=== PATIENT | female | born 1975 | race Caucasian/White ===

== ENCOUNTER 2016-06-15 09:10 | Emergency (ER) | payer OTHER ==
[~2016-06-15] VITALS: Ht 154.9 cm; Wt 85.0 kg
[2016-06-15 09:21] VITALS: PULSE 82; TEMP 36.5; O2SAT 96; Ht 154.9 cm; Wt 85.0 kg
--- NOTE | 2016-06-15 09:50 | EMERGENCY ROOM VISIT NOTE ---
History Report prepared by Dez: Miller Acuna Under the Supervision of: Dr. Stef Kauffman M.D. First contact with patient: 09:42 Chief Complaint: FALL Stated Complaint: FELL ON ICE, HIT HEAD/NECK,UPPER BACK, NAUSEA History of Present Illness The patient is a 41 year old female who presents to the Emergency Room with complaints of constant head pain secondary to a fall that occurred at 0800 this morning. Per the patient, she fell backwards on ice this morning while getting her daughter ready for school. The patient hit her upper back and neck during this fall. She states that the pain she is experiencing today is primarily in the front of her head, specifically behind her eyes. She rates her discomfort a 4/10 in severity. Additional symptoms include nausea, visual changes, tingling in the back, and a general sense of "feeling weird." She denies loss of consciousness, back pain, auditory changes, abdominal pain, and any additional associated symptoms. Source of History: patient Onset: 0800 this morning Position: head Symptom Intensity: 4/10 Timing: constant Associated Symptoms: + nausea, No LOC, No abdominal pain, No back pain Review of Systems All systems have been listed, reviewed, and are negative other than those previously mentioned. Please see Additional Medical History Sheet. Past Medical & Surgical Medical Problems: (1) Asthma (2) Crohn's disease (3) PVC (premature ventricular contraction) Surgical Problems: (1) H/O abdominoplasty (2) H/O bilateral breast reduction surgery (3) H/O section Family History Cancer Diabetes mellitus FH: HTN (hypertension) FH: kidney disease FH: seizures Heart disease Lung disease Social History Smoking Status: Never Smoker Alcohol Use: occasionally Marital Status: Housing Status: lives with family Occupation Status: employed Current/Historical Medications Scheduled Adalimumab (Humira Pen), 1 DOSE SC Q2W Gabapentin (Gabapentin), 1 CAP PO QAM Multiple Vitamin (Multivitamin), 1 TAB PO DAILY Venlafaxine Hcl (Venlafaxine Extended Rel), 2 TABS PO DAILY Scheduled PRN Ondasetron Odt (Zofran Odt), 4 MG SL Q4 PRN for nausea Allergies Coded Allergies: No Known Allergies (Unverified , 06/15/16) Physical Exam Vital Signs Date Time Temp Pulse Resp B/P Pulse Ox O2 Delivery O2 Flow Rate FiO2 06/15/16 11:40 133/79 06/15/16 09:21 36.5 82 16 121/85 96 Room Air Physical Exam GENERAL: Patient awake, alert, oriented x 3. Patient follows commands. Patient does not appear toxic. Patient is adequately hydrated and well- nourished. SKIN: No erythema, pallor, cyanosis or rash HEENT: Normal head, no hamm sign, raccoon sign, or hemotympanum, pupils equal , reactive to light and accommodation. Ears normal. Oral cavity and posterior pharynx appear normal. Neck: Supple, vague mid cervical spine tenderness without stepoff, no adenopathy, no neck vein distention. LUNGS: Clear to auscultation. No wheezes, no rales, no rhonchi. HEART: No murmurs. No gallops. No rubs ABDOMEN: No masses, no rebound, no hepatomegaly or splenomegaly. EXTREMITIES: No signs of trauma or infection. No pedal or pretibial edema. No calf or thigh tenderness. BACK: Vague tenderness without point tenderness or step off. NEUROLOGIC: Cranial nerves II-XII within normal limits. No gross motor sensory function deficits. Medical Decision & Procedures ER Provider Diagnostic Interpretation: Radiology results as stated below per my review and radiologist interpretation: CT HEAD WITHOUT CONTRAST (CT) CLINICAL HISTORY: Head pain status post trauma COMPARISON STUDY: No previous studies for comparison. TECHNIQUE: Axial CT of the brain is performed from the vertex to the skull base. IV contrast was not administered for this examination. CT DOSE: FINDINGS: No intra or extra-axial mass lesions are visualized. There is no CT evidence of acute cortical infarction. There is no evidence of midline shift. There is no acute hemorrhage. No calvarial fractures are visualized. There is no evidence of pathologic ventricular dilatation. There is no evidence of acute sinusitis IMPRESSION: Normal noncontrast head CT. Electronically signed by: Ney Pro M.D. 06/15/2016 10:30 AM Dictated Date/Time: 06/15/2016 10:[address] OF THE CERVICAL SPINE CLINICAL HISTORY: Neck pain status post trauma COMPARISON STUDY: No previous studies for comparison. CT DOSE: 979.25 mGy.cm TECHNIQUE: CT scan of the cervical spine was performed from the skull base to the thoracic inlet. Images are reviewed in the axial, sagittal, and coronal planes. IV contrast was not administered for this examination. FINDINGS: The visualized portions of the lung apices reveal no evidence of pneumothorax. The prevertebral soft tissues are normal. No fractures or subluxations are visualized. There is a slight reversal the normal cervical lordosis, likely secondary to muscle spasm or positioning.. IMPRESSION: No evidence of acute fracture or traumatic subluxation. Electronically signed by: Ney Pro M.D. 06/15/2016 10:32 AM Dictated Date/Time: 06/15/2016 10:30 AM Medications Administered Medications (Trade) Dose Ordered Sig/Ryanne Route Start Time Stop Time Status Last Admin Dose Admin Ondansetron HCl (Zofran Odt) 4 mg ONE ONCE SL 06/15/16 10:00 06/15/16 10:01 DC 06/15/16 09:57 4 MG ED Course 0943: Past medical records reviewed. The patient was evaluated in room B8. A complete history and physical examination was performed. 1000: Ordered Zofran Odt 4 mg SL. 2256: Upon reevaluation, the patient appeared to have improvement of her symptoms. The patient reports that the Zofran helped with her nausea. I will order some for home use. I discussed today's findings with the patient. She verbalized agreement of the treatment plan. She was discharged home. Medical Decision Nurses notes reviewed. Medical history sheet reviewed. Differential diagnosis includes but is not limited to: closed head injury, cervical spine fracture/ dislocation. CT of the head and neck were obtained. Please see above. The patient does not have any obvious pathology seen on the scans but she does have symptoms suggesting a concussion and cervical strain. The patient was advised to have very minimal activity of the next several days until symptoms have resolved. She was educated about symptoms regarding concussion. The patient was given Tylenol here and Zofran. She'll continue those medications at home as needed. She is to follow-up with her family physician. Impression Primary Impression: Concussion Additional Impressions: Closed head injury Cervical strain, acute Scribe Attestation The scribe's documentation has been prepared under my direction and personally reviewed by me in its entirety. I confirm that the note above accurately reflects all work, treatment, procedures, and medical decision making performed by me. Departure Information Dispostion Home / Self-Care Prescriptions Ondasetron Odt (ZOFRAN ODT) 4 Mg Tab 4 MG SL Q4 Y for nausea, #10 TAB Prov: Stef Kauffman M.D. 06/15/16 Referrals Raquel Choudhury D.O. (PCP) Forms HOME CARE DOCUMENTATION FORM, IMPORTANT VISIT INFORMATION Patient Instructions Concussion Dc, My [facility] Additional Instructions Apply ice intermittently to your neck and upper back over the next 24 hours. 650 mg of Tylenol every 4 hours as needed for headache. 1 Zofran every 4 hours as needed for nausea. You should have very minimal cognitive duties over the next 2-3 days. Follow-up with your family physician within the next 7 days. Return here sooner if symptoms are getting any worse. Problem Qualifiers
[2016-06-15] MEDS ORDERED: ONDANSETRON 4MG OD TAB SL ONE (10:00)
[2016-06-15] MEDS ORDERED: NRN100 PO (10:18)
[2016-06-15] MEDS ORDERED: VENL37.593 PO (10:18)
[2016-06-15] MEDS ORDERED: ADAL40KI SC (10:18)
[2016-06-15] MEDS ORDERED: MULTTAB58 PO (10:19)
--- NOTE | 2016-06-15 10:31 | DIAGNOSTIC IMAGING REPORT ---
CT HEAD WITHOUT CONTRAST (CT) CLINICAL HISTORY: Head pain status post trauma COMPARISON STUDY: No previous studies for comparison. TECHNIQUE: Axial CT of the brain is performed from the vertex to the skull base. IV contrast was not administered for this examination. CT DOSE: FINDINGS: No intra or extra-axial mass lesions are visualized. There is no CT evidence of acute cortical infarction. There is no evidence of midline shift. There is no acute hemorrhage. No calvarial fractures are visualized. There is no evidence of pathologic ventricular dilatation. There is no evidence of acute sinusitis IMPRESSION: Normal noncontrast head CT. Electronically signed by: Ney Pro M.D. 06/15/2016 10:30 AM Dictated Date/Time: 06/15/2016 10:29 AM
--- NOTE | 2016-06-15 10:33 | DIAGNOSTIC IMAGING REPORT ---
CT OF THE CERVICAL SPINE CLINICAL HISTORY: Neck pain status post trauma COMPARISON STUDY: No previous studies for comparison. CT DOSE: 979.25 mGy.cm TECHNIQUE: CT scan of the cervical spine was performed from the skull base to the thoracic inlet. Images are reviewed in the axial, sagittal, and coronal planes. IV contrast was not administered for this examination. FINDINGS: The visualized portions of the lung apices reveal no evidence of pneumothorax. The prevertebral soft tissues are normal. No fractures or subluxations are visualized. There is a slight reversal the normal cervical lordosis, likely secondary to muscle spasm or positioning.. IMPRESSION: No evidence of acute fracture or traumatic subluxation. Electronically signed by: Ney Pro M.D. 06/15/2016 10:32 AM Dictated Date/Time: 06/15/2016 10:30 AM
[2016-06-15] MEDS ORDERED: ONDA4TAB10 SL (11:00)
[2016-06-15 11:40] VITALS: BP 133/79
== END 2016-06-15 11:42 | disposition home or self-care (01) ==
LOC: C.EDB 09:12
DX: S06.0X9A Concussion with loss of consciousness of unspecified duration, initial encounter (principal); S16.1XXA Strain of muscle, fascia and tendon at neck level, initial encounter; W00.9XXA Unspecified fall due to ice and snow, initial encounter; J45.909 Unspecified asthma, uncomplicated; K50.90 Crohn's disease, unspecified, without complications; Z90.89 Acquired absence of other organs; Z83.3 Family history of diabetes mellitus; Z84.1 Family history of disorders of kidney and ureter; Z82.0 Family history of epilepsy and other diseases of the nervous system; Z82.49 Family history of ischemic heart disease and other diseases of the circulatory system; Z83.6 Family history of other diseases of the respiratory system

== ENCOUNTER → 2016-10-19 | Outpatient (CLI) | payer OTHER ==
[~2016-10-19] MED LIST: ADAL40KI SC; GADAVIST IV PRN; GLUCAGON FOR INJ 1 MG VIAL SQ SCH; MULTTAB58 PO; NRN100 PO; NURSING VERBAL MED ORDER ONE; ONDA4TAB10 SL; VENL37.593 PO
--- NOTE | 2016-10-19 16:44 | DIAGNOSTIC IMAGING REPORT ---
ENTEROGRAPHY ABD/PELVIS COMBO CLINICAL HISTORY: CROHNS,RLQ PAIN pain. Nausea. TECHNIQUE: Multiaxial MRI acquisition COMPARISON STUDY: None FINDINGS: Lung bases are clear. There is a 2.5 cm hypervascular segment 7 hepatic lesion unchanged compared to a prior MRI study dated December 17, 2014 and 09/30/2015. This again suggests focal nodular hyperplasia. Signal characteristics of liver spleen and pancreas are otherwise uniform. Kidneys are negative for hydronephrosis. The upper abdominal bowel pattern is unremarkable. There is suggestion of slight mucosal effacement of the final 10 cm of the terminal ileum with slight fluid-filled distention of that region of small bowel. This suggests a component of backwash ileitis and/or mild Crohn's-type change. No evidence for abscess or significant wall thickening. There are no obstructive changes. The colonic pattern is nonobstructive. The bladder is midline. The uterus is anteflexed. Small ovarian follicular cysts. Signal characteristics of the osseous structures are unremarkable. There is no significant bone marrow replacing process. IMPRESSION: 1. Mild effacement of the mucosal pattern of the final 10 cm of the terminal ileum. 2. This suggests a component of backwash ileitis or mild inflammatory/Crohn's-type change. 3. No evidence for abscess, collection, or obstructive change. 4. Small bilateral ovarian follicular cyst. 5. Small 2.5 cm nodule segment 7 of the liver consistent with focal nodular hyperplasia. This nodule is stable over 2 prior studies The above report was generated using voice recognition software. It may contain grammatical, syntax or spelling errors. Electronically signed by: Justin Flores M.D. 10/19/2016 4:42 PM Dictated Date/Time: 10/19/2016 4:37 PM
== END | disposition home or self-care (01) ==
LOC: C.MRI 13:13
PROVIDERS: ATTEND Internal Medicine Gastroenterology
DX: R10.31 Right lower quadrant pain (principal); N83.201 Unspecified ovarian cyst, right side; N83.202 Unspecified ovarian cyst, left side; K76.9 Liver disease, unspecified

== ENCOUNTER → 2017-05-29 | Outpatient (CLI) | payer OTHER ==
[~2017-05-29] MED LIST changes: +ALL180 PO; +AMIT10TA6 PO; +AMOX875T3 PO; +CHOL200010 PO; +CYAN500T13 PO; +EFFSR75 PO; +FLAX12003; -GLUCAGON FOR INJ 1 MG VIAL SQ SCH; +MAGN400T6 PO; +MISCCAP80 PO; -NURSING VERBAL MED ORDER ONE; +OMEG10007 PO; -ONDA4TAB10 SL; +PANT40TA2 PO; +RHOD300C PO; +VITA400C3 PO
--- NOTE | 2017-05-29 17:59 | DIAGNOSTIC IMAGING REPORT ---
MRI OF THE INTERNAL AUDITORY CANALS COMBO CLINICAL HISTORY: Bilateral tinnitus. COMPARISON STUDY: CT of the brain dated 06/15/2016. TECHNIQUE: High-resolution MRI imaging of the internal artery canals was performed utilizing various T1 and T2-weighted sequences in the axial and coronal planes. Contrast-enhanced sequences were acquired following the administration of 9 cc of Gadavist. Axial T1, coronal FLAIR, and sagittal T1 sequences of the brain were acquired. FINDINGS: Internal auditory canals: There is no enhancing mass lesion identified in the cerebellopontine angle bilaterally. No mass or abnormal enhancement is seen along the course of the internal auditory canals. The middle ear structures are normal as visualized. The trigeminal nerves are normal and symmetric. Brain parenchyma: The brain parenchyma is normal as visualized on the provided sequences. The ventricles are normal in caliber. The pituitary and sella are normal as visualized. The cerebellar tonsils are normal in configuration. Calvarium: The visualized calvarium is normal in appearance. Cervical cord: Partially visualized cervical spinal cord is normal in morphology and signal intensity. IMPRESSION: Unremarkable MRI assessment of the internal auditory canals. Electronically signed by: Reinier Corbett M.D. 05/29/2017 5:58 PM Dictated Date/Time: 05/29/2017 5:53 PM
== END | disposition home or self-care (01) ==
LOC: C.MRI 16:52
PROVIDERS: ATTEND Otolaryngology
DX: J31.0 Chronic rhinitis (principal)

== ENCOUNTER 2017-05-31 15:31 | Emergency (ER) | payer OTHER ==
[~2017-05-31] VITALS: Ht 154.9 cm; Wt 94.7 kg
[~2017-05-31 15:31] MED LIST changes: -ALL180 PO; -AMIT10TA6 PO; -AMOX875T3 PO; -CHOL200010 PO; -CYAN500T13 PO; -EFFSR75 PO; -FLAX12003; -GADAVIST IV PRN; -MAGN400T6 PO; -MISCCAP80 PO; -OMEG10007 PO; -PANT40TA2 PO; -RHOD300C PO; -VITA400C3 PO
[2017-05-31 15:41] VITALS: TEMP 36.7; Ht 154.9 cm; Wt 94.7 kg
[2017-05-31] MEDS ORDERED: AMOX875T3 PO ×2 (16:37→16:39)
[2017-05-31] MEDS ORDERED: PANT40TA2 PO (16:44)
[2017-05-31] MEDS ORDERED: AMIT10TA6 PO (16:44)
[2017-05-31] MEDS ORDERED: ALL180 PO (16:44)
[2017-05-31] MEDS ORDERED: EFFSR75 PO (16:44)
[2017-05-31] MEDS ORDERED: FLAX12003 (16:48)
[2017-05-31] MEDS ORDERED: CYAN500T13 PO (16:48)
[2017-05-31] MEDS ORDERED: MISCCAP80 PO (16:49)
[2017-05-31] MEDS ORDERED: RHOD300C PO (16:49)
[2017-05-31] MEDS ORDERED: OMEG10007 PO (16:49)
[2017-05-31] MEDS ORDERED: VITA400C3 PO (16:49)
[2017-05-31] MEDS ORDERED: MAGN400T6 PO (16:49)
[2017-05-31] MEDS ORDERED: CHOL200010 PO (16:49)
[2017-05-31 16:57] VITALS: BP 130/86; PULSE 108; O2SAT 98
--- NOTE | 2017-05-31 23:52 | EMERGENCY ROOM VISIT NOTE ---
ED Visit Note First contact with patient: 15:49 Chief Complaint: Throat pain. History of Present Illness: Ms. Andrade is a 42-year-old white female who ambulates into the ED accompanied by multiple family members. Historically patient reports she has being evaluating for chronic tonsillar hypertrophy by an ENT specialist. Patient reports last evening she started developing throat pain. Initially she reports it is mild and has gradually increased in intensity. 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 Currently she describes her discomfort of an achy and throbbing sensation in the middle of the posterior pharyngeal area. She rates her discomfort 4/10. Her pain is nonradiating. Her pain worsens with swallowing. She has not identified any alleviating factors related to the pain. She has used over-the- counter medications without relief of her discomfort. She denies any associated fevers, chills, sweats, skin eruptions, skin color changes, headache, dizziness, lightheadedness, ear pain, hearing changes, inability to swallow, voice changes, painful talking, drooling, neck pain/ stiffness, cough, wheezing, shortness of breath, decreased appetite, nausea/ vomiting. Review of Systems: As noted above in history of present illness. 8 body systems were reviewed and found to be negative as noted above. Past Medical History: Arrhythmias, asthma, Crohn's disease, status post section 2, breast reduction, abdominoplasty. Current Medications: Medications Dose Route/Sig Max Daily Dose Days Date Category Rhodiola (Rhodiola Rosea) 300 Mg Cap 1 Cap PO DAILY 05/31/17 Reported Windom-3 (Fish Oil) 1 Ea Cap 1 Cap PO DAILY 05/31/17 Reported Probiotic (Probiotic Product) 1 Cap Cap 1 Cap PO DAILY 05/31/17 Reported Vitamin E 400 Iu (Vitamin E) 400 Unit Cap 400 Inter.unit PO DAILY 05/31/17 Reported Vitamin D (Cholecalciferol) 2,000 Unit Cap 2,000 Units PO DAILY 05/31/17 Reported Mag-Ox (Magnesium Oxide) 400 Mg Tab 400 Mg PO D 05/31/17 Reported Flaxseed Oil (Flaxseed (Linseed)) 1 Cap Cap 1 Cap DAILYBB 05/31/17 Reported Vitamin B12 500MCG (Cyanocobalamin) 500 Mcg Tab 500 Mcg PO DAILY 05/31/17 Reported Effexor Extended Rel (Venlafaxine Hcl) 75 Mg Capcr 75 Mg PO DAILY 05/31/17 Reported Elavil (Amitriptyline Hcl) 10 Mg Tab 5-10 Mg PO QPM 05/31/17 Reported Pantoprazole Sodium (Pantoprazole) 40 Mg Tab 40 Mg PO BID 05/31/17 Reported Fexofenadine HCl 180 Mg Tab 180 Mg PO DAILY 05/31/17 Reported Multivitamin (Multiple Vitamin) 1 Tab Tab 1 Tab PO DAILY 06/15/16 Reported Humira Pen (Adalimumab) 40 Mg/0.8 Ml Kit 1 Dose SC Q2W 06/15/16 Reported Allergies to Medications: Prednisone. Social History: Patient is currently employed; she feels safe in her home environment; she denies tobacco use and admits to alcohol use. Physical Examination: Vital Signs: Date Time Temp Pulse Resp B/P (MAP) Pulse Ox O2 Delivery O2 Flow Rate FiO2 05/31/17 16:57 108 20 130/86 98 05/31/17 15:44 98 Room Air 05/31/17 15:41 36.7 108 20 130/86 98 Room Air 05/31/17 15:41 Room Air GENERAL: 42-year-old female in mild distress due to pain, nontoxic-appearing, afebrile and hemodynamically stable. NEUROLOGICAL: Awake, alert and oriented to person, place and time. Answering questions appropriately and following commands. Normal gait. Good hand eye coordination. No focal motor sensory deficits. SKIN: Warm, dry and pink. No soft tissue eruptions or trauma noted. HEENT: Atraumatic and normocephalic. External ears are nontender. Auditory canals are pink and patent. Tympanic membranes are pearly lay with a normal light reflex. No tenderness or erythema over the frontal or maxillary sinuses. PERRLA. Sclera white and conjunctiva pink without drainage. No drainage from naris without audible congestion. Oral cavity moist and pink. Uvula is midline and no abscesses are seen. Pharynx is mildly erythematous and moderately edematous with tonsillar hypertrophy. No exudates on the tonsils. Speech normal. Positive anterior chain cervical lymphadenopathy. No laryngeal tenderness. Trachea midline. No jugular venous distention. BACK: No tenderness over the bony cervical or thoracic spine. No nuchal rigidity or meningismus. THORAX: Lungs sounds are clear to auscultation and equal bilaterally with symmetrical chest wall. No wheezing, rales or rhonchi. ED Course: Patient is assessed as noted above. Patient's medication list was reviewed. Rapid Streptococcal A Screen: Positive. Patient was offered pain medication and refused. Patient was educated about today's findings and instructed on her treatment plan ; she verbalized understanding and agreement with this plan. Clinical Impression: Acute streptococcal pharyngitis. Disposition: Patient discharged home in stable condition accompanied by multiple family members; prior to departure she was reassessed and subjectively reported she was feeling slightly better and rated her discomfort 3/10. Plan: Patient was encouraged alternate ibuprofen and acetaminophen as needed for pain. Patient was encouraged to use salt water gargles for 5 times a day. Patient was prescribed amoxicillin 875 mg 3 times a day for 10 days. Patient was encouraged to stay well-hydrated and consider using a liquid/ mechanical soft diet until resolution of throat discomfort. Patient was encouraged to follow-up with her PCP for recheck. Patient was encouraged return the ED for worsening/uncontrolled pain, uncontrolled fevers, painful talking, drooling, inability to swallow or any new/ concerning symptoms.
== END 2017-05-31 16:57 | disposition home or self-care (01) ==
LOC: C.EDB 15:31 → C.EDD 16:57
DX: J02.0 Streptococcal pharyngitis (principal); J45.909 Unspecified asthma, uncomplicated; K50.90 Crohn's disease, unspecified, without complications; Z88.8 Allergy status to other drugs, medicaments and biological substances

== ENCOUNTER → 2017-06-11 | Outpatient (CLI) | payer OTHER ==
[~2017-06-11] MED LIST changes: +ALL180 PO; +AMIT10TA6 PO; +AMOX875T3 PO; +CHOL200010 PO; +CYAN500T13 PO; +EFFSR75 PO; +FLAX12003; +MAGN400T6 PO; +MISCCAP80 PO; -NRN100 PO; +OMEG10007 PO; +PANT40TA2 PO; +RHOD300C PO; -VENL37.593 PO; +VITA400C3 PO
--- NOTE | 2017-06-11 10:27 | DIAGNOSTIC IMAGING REPORT ---
GI WITH AIR AND BARIUM SWALLOW CLINICAL HISTORY: 42 years-old Female presenting with [id number]. TECHNIQUE: A standard air contrast barium esophagram is performed. Multiple spot images of the esophagus are acquired both upright and prone. COMPARISON: CT cervical spine from 06/15/2016. FINDINGS: The patient was able to ingest barium and the barium pill without difficulty. Normal mucosal pattern. No evidence of intrinsic or extrinsic mass lesion. No aspiration observed. The gastroesophageal junction distended normally. No gastroesophageal reflux could be elicited despite provocative maneuvers. Fluoroscopy dosage (mGy): Not available. Fluoroscopy time: 2.4 minutes. Number of fluoroscopic spot images: 31. IMPRESSION: Normal fluoroscopic examination of the esophagus. Electronically signed by: Travon Naidu M.D. 06/11/2017 10:25 AM Dictated Date/Time: 06/11/2017 10:24 AM
== END | disposition home or self-care (01) ==
LOC: C.RAD 09:26
PROVIDERS: ATTEND Family Medicine
DX: R13.10 Dysphagia, unspecified (principal)